=== PATIENT | female | born 1980 | race African-American/Black ===

== ENCOUNTER 2020-07-23 16:32 | Emergency (ER) | payer BC, SELFPAY ==
--- NOTE | ~2020-07-23 | XR_ITS ---
EXAMINATION: XR hand LT 2V DATE: 07/23/2020 17:42 INDICATION: Left hand pain. TECHNIQUE: Posteroanterior and lateral views of the left hand were obtained. COMPARISON: None. FINDINGS: Alignment is normal. No fracture. Portion of the mid diaphysis of the fourth proximal phalanx is duarte sohail obscured by a ring which reportedly could not be removed. Joint spaces are normal. There is some soft tissue swelling at the bases of the digits most prominent at the fourth digit. IMPRESSION: 1. No evident osseous abnormality. Reviewed, dictated and finalized at location A. L TESTER
[2020-07-23 16:56] VITALS: BP 128/82; PULSE 71; RESP 16; TEMP 36.7; O2SAT 100
--- NOTE | 2020-07-23 18:26 | ED.UPPEXIN ---
HPI - Extremity Injury (Upper) General Chief Complaint: Extremity Injury, Upper Stated Complaint: wrist injury Time Seen by Provider: 07/23/20 17:07 Source: patient Mode of arrival: ambulatory Limitations: no limitations History of Present Illness HPI narrative: 39-year-old with no major medical problems here with a complaint of left hand pain for approximately 2 months. She denies any trauma. 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 But she complains that she is unable to hold any object in that hand as the pain shoots from the mid of the hand all the way to the mid forearm patient also states that pain is mostly in between fourth and fifth metacarpal area. MD complaint: injury to: left Onset (ago): month(s) Other Extremity Injury: Left: hand Relieving factors: none Exacerbating factors: movement of extremity Associated symptoms: denies other symptoms Review of Systems Review of Systems: All systems reviewed & are unremarkable except as noted in HPI and below Constitutional: Constitutional: Reports no additional constitutional complaints Eyes: Eyes: Reports no additional eye complaints ENT: Reports system reviewed and no additional complaints, except as documented Cardiovascular: Cardiovascular: Reports no additional cardiovascular complaints Respiratory: Respiratory: Reports no additional respiratory complaints Gastrointestinal: Gastrointestinal: Reports no additional gastrointestinal complaints Musculoskeletal: Musculoskeletal: Reports as per HPI Neurologic: Reports system reviewed and no additional complaints, except as documented Exam Narrative: Exam Narrative: GENERAL: Well-appearing, well-nourished, and in no acute distress. HEAD: Normocephalic, atraumatic. EYES: PERRLA and EOMI. NECK: Supple. CHEST: Clear to auscultation. No respiratory distress. HEART: Regular rate and rhythm. No murmur heard. Normal peripheral pulses.. EXTREMITIES: Normal range of motion. No edema. Examination of the left hand shows no deformity no muscle wasting, good radial pulse tender on palpation SKIN: Warm, dry, no rash. NEURO: No focal deficits. Alert and oriented x3. PSYCH: Normal mood and affect. Course Course Emergency Course: Inform patient about her x-ray findings recommended her to follow-up with hand and plastic surgery for further evaluation for possible nerve entrapment or tendinitis Vital Signs Vital signs: Vital Signs Temperature 36.7 C 07/23/20 16:56 Pulse Rate 71 07/23/20 16:56 Respiratory Rate 16 07/23/20 16:56 Blood Pressure 128/82 07/23/20 16:56 Pulse Oximetry 100 07/23/20 16:56 Temperature 36.7 C 07/23/20 16:56 Pulse Rate 71 07/23/20 16:56 Respiratory Rate 16 07/23/20 16:56 Blood Pressure 128/82 07/23/20 16:56 Pulse Oximetry 100 07/23/20 16:56 Discharge Plan Discharge Clinical Impression: Hand pain, left Patient Disposition: Home, Self-Care Condition: Stable Instructions: Antibiotic Form, Tendinitis (ED) Prescriptions: New naproxen 500 mg tablet 500 mg PO BID PRN (Reason: pain) Qty: 14 RF: 0 Follow-up/Referrals: UNKNOWN,DOCTOR [Primary Care Provider] - Renaldo Mcgill MD [Physician] - Time of Disposition: 18:35
== END 2020-07-23 18:46 | disposition home or self-care (01) ==
PROVIDERS: Emergency Provider Family Medicine
DX: M79.642 Pain in left hand (principal)
CPT/HCPCS: 73120; 99283

== ENCOUNTER 2021-08-08 20:04 | Emergency (ER) | payer BC, SELFPAY ==
--- NOTE | ~2021-08-08 | XR_ITS ---
EXAMINATION: XR knee LT min 4V DATE: 08/08/2021 20:34 INDICATION: Left knee pain TECHNIQUE: Four views of the left knee were obtained. COMPARISON: None. FINDINGS: Alignment is normal. No fracture or osteochondral lesion. There is mild tricompartmental os teoarthritis characterized by tiny marginal osteophytes. A small knee joint effusion is present. Soft tissues are unremarkable. IMPRESSION: 1. Small knee joint effusion without acute osseous abnormality. Reviewed, dictated and finalized at location F. K SERVICE TECHNICIAN
[2021-08-08 20:05] VITALS: BP 152/78; PULSE 93; RESP 17; TEMP 35.9; O2SAT 100
[2021-08-08] MEDS: IBUPROFEN 400 MG TABLET 800 MG PO (20:43)
--- NOTE | 2021-08-08 21:03 | ED.GENADULT ---
HPI - General Adult General Chief complaint: Extremity Injury, Lower <Karley Torres APRN - Last Filed: 08/08/21 21:15> Stated complaint: Left knee pain <Karley Torres APRN - Last Filed: 08/08/21 21:15> Time Seen by Provider: 08/08/21 20:11 <Karlye Torres APRN - Last Filed: 08/08/21 21:15> Source: patient <Karley Torres APRN - Last Filed: 08/08/21 21:15> Mode of arrival: ambulatory <Karley Torres APRN - Last Filed: 08/08/21 21:15> Limitations: no limitations <Karley Torres APRN - Last Filed: 08/08/21 21:15> History of Present Illness HPI narrative: 40 year old female presents today with compaints of left knee pain that started yesterday. Patient states she hurt that knee when she was a teenager was supposed to have surgery but did not. States no issues until yesterday. <Karley Torres APRN - Last Filed: 08/08/21 21:15> Related Data Allergies/adverse reactions: Allergies Allergy/AdvReac Type Severity Reaction Status Date / Time No Known Allergies Allergy Verified 08/08/21 21:17 <Karley Torres APRN - Last Filed: 08/08/21 21:15> Review of Systems Review of Systems: CONSTITUTIONAL: Denies fever, chills, or sweats. EYES: Denies visual changes, redness, or discharge. ENT: Denies rhinorrhea, congestion, sore throat, or otalgia. CARDIOVASCULAR: Denies chest pain, palpitations, or edema. RESPIRATORY: Denies cough or dyspnea. GASTROINTESTINAL: Denies abdominal pain, nausea, vomiting, or diarrhea. GENITOURINARY: Denies dysuria or hematuria. SKIN: Denies rash or itching. MUSCULOSKELETAL: Denies back pain or myalgia. Left knee pain. NEUROLOGIC: Denies headache, numbness, dizziness, or weakness. PSYCHIATRIC: Denies anxiety or depression. <Karley Torres APRN - Last Filed: 08/08/21 21:15> Exam Narrative: GENERAL: Well-appearing, well-nourished, and in no acute distress. HEAD: Normocephalic, atraumatic. EYES: PERRLA and EOMI. ENT: Nares clear, no rhinorrhea or epistaxis. Mucous membranes moist. Oropharynx without tonsillar hypertrophy exudate or other lesions. Bilateral TMs pearly clemens nonbulging NECK: Supple. No adenopathy or masses. No carotid bruits or JVD CHEST: Clear to auscultation. No respiratory distress. No wheezes rales or rhonchi HEART: Regular rate and rhythm. No murmur heard. Normal peripheral pulses. ABDOMEN: Soft, nontender, nondistended, normal active bowel sounds. EXTREMITIES: Normal range of motion. No edema. Left knee lateral ligament tender to palpation. Patella stable. No swelling noted. Anterior and posterior drawer negative. SKIN: Warm, dry, no rash. NEURO: No focal deficits. Alert and oriented x3. PSYCH: Normal mood and affect. <Karley Torres APRN - Last Filed: 08/08/21 21:15> Course COTTON PRESSER/PA Physician Supervision For this patient encounter, I reviewed the COTTON PRESSER or PA documentation, treatment plan, and medical decision making <Gio Proctor MD - Last Filed: 08/08/21 21:28> Vital Signs Vital signs: Vital Signs Temperature 96.7 F L 08/08/21 20:05 Pulse Rate 93 08/08/21 20:05 Respiratory Rate 17 08/08/21 20:05 Blood Pressure 152/78 H 08/08/21 20:05 Pulse Oximetry 100 08/08/21 20:05 Temperature 96.7 F L 08/08/21 20:05 Pulse Rate 93 08/08/21 20:05 Respiratory Rate 18 08/08/21 21:21 Blood Pressure 152/78 H 08/08/21 20:05 Pulse Oximetry 100 08/08/21 20:05 <Karley Torres APRN - Last Filed: 08/08/21 21:15> Vital Signs Temperature 96.7 F L 08/08/21 20:05 Pulse Rate 93 08/08/21 20:05 Respiratory Rate 17 08/08/21 20:05 Blood Pressure 152/78 H 08/08/21 20:05 Pulse Oximetry 100 08/08/21 20:05 Temperature 96.7 F L 08/08/21 20:05 Pulse Rate 93 08/08/21 20:05 Respiratory Rate 18 08/08/21 21:21 Blood Pressure 152/78 H 08/08/21 20:05 Pulse Oximetry 100 08/08/21 20:05 <Gio Proctor MD - Last Filed: 08/08/21 21:28> Medical Decision Making Vital
[2021-08-08 21:21] VITALS: RESP 18
== END 2021-08-08 21:20 | disposition home or self-care (01) ==
PROVIDERS: Emergency Provider Nurse Practitioner Family; PCP Emergency Medicine
DX: M17.12 Unilateral primary osteoarthritis, left knee (principal)
CPT/HCPCS: 73564; 99283; A9270